=== PATIENT | female | born 1990 | race Caucasian/White ===

== ENCOUNTER → 2020-04-27 | Outpatient (CLI) | payer OTHER ==
--- NOTE | 2020-04-27 09:40 | RADIOLOGY REPORT (SQ) ---
EXAM DESCRIPTION: MRI HEAD COMBO IMAGES COMPLETED DATE/TIME: 04/27/2020 9:01 am REASON FOR STUDY: R20.2 PARESTHESIA OF SKIN R20.2 PARESTHESIA OF SKIN COMPARISON: None. TECHNIQUE: Multiplanar imaging includes noncontrasted T1, T2, FLAIR, diffusion with ADC map and post gadolinium contrast T1 sequences. Images stored on PACS. CONTRAST TYPE AND DOSE: 10 mL Prohance. RENAL FUNCTION: Not indicated. ACR Type II contrast agent associated with few, if any, unconfounded cases of NSF LIMITATIONS: None. FINDINGS: ANATOMY: No anomalies. Normal vascular flow voids. Pituitary fossa normal. CSF SPACES: Normal in size and contour. No hemorrhage. CEREBRUM: Sulci and gyri normal in size and contour. Normal white matter signal on FLAIR imaging. No evidence of hemorrhage, mass, or extraaxial fluid collection. No abnormal enhancement post contrast. POSTERIOR FOSSA: No signal alteration. No hemorrhage. No edema, masses, or mass effect. Internal luz tory canals, cerebellopontine angles, mastoids normal. No enhancing lesions. No abnormal enhancement post contrast. DIFFUSION IMAGING: Negative for acute or subacute infarction. ORBITS: No masses. Globes normal. PARANASAL SINUSES: No fluid levels. Mucosa normal. OTHER: No other significant finding. IMPRESSION: NORMAL MRI OF THE BRAIN WITHOUT AND WITH INTRAVENOUS GADOLINIUM CONTRAST. EVIDENCE OF ACUTE STROKE: NO. TECHNICAL DOCUMENTATION: JOB ID: [id number] 2010 [employer]- All Rights Reserved Reading location - IP/workstation name: [email or web address]
== END ==
LOC: RAD 08:08
PROVIDERS: ATTEND Nurse Practitioner Family
DX: R20.2 Paresthesia of skin (principal)
CPT/HCPCS: 70553; A9576

== ENCOUNTER → 2020-05-06 | Outpatient (CLI) | payer OTHER ==
--- NOTE | 2020-05-06 13:54 | XCELERA REPORT ---
[address] [address] Transthoracic Echocardiogram Report Name: BELL PEDERSON Age: 29 yrs Gender: Female : 1990 Patient Status: Outpatient Patient Location: Study Date: 05/06/2020 08:22 AM Height: 67 in Weight: 127 lb BSA: 1.7 m2 Reason For Study: CP Ordering Physician: MAY ROBERSON Performed By: Monica Porter Interpretation Summary No significant posterior pericardial effusion. Normal aortic root 27 mm. AV valve configuration 3 cusps, normal, with no and no AR.. No mitral annular calcification. No MS, No MVP. Mild 2 MR jets with no left atrial enlargement.(AYE=26.6) No LVH (7 mm)., Biplane LVEF 60-65%, no diastolic dysfunction by TDI.. Segmental regional wall motion abnormality seen as in inferoseptal wall hypokinesis. No LV enlargement (LVESD 36 mm). Tricuspid valve is normal, mild TV regurgitation., trace WA. RA and RV both normal size.. TAPSE is normal, no RVSD. RVSP is 22mm Hg. No ASD. IVC not dilated 21 mm. Summary = Mild MR with no MS, no MVP, no LA enlargement. No LVH , normal LVEF 60-65%(visual), with no Diastolic Dysfunction by TDI. Mild regional wall motion abnormality as in inferoseptal wall hypokinesis. Normal R heart, NO pulm. HTN, RVSP22. Mild MR and TR mild . Dr Yosvany Griffiths. MMode/2D Measurements & Calculations RVDd: 3.1 cm LVIDd: 4.6 cm FS: 32.8 % Ao root diam: 2.5 cm IVSd: 0.66 cm LVIDs: 3.1 cm EDV(Teich): Ao root area: LVPWd: 0.84 cm 95.8 ml ESV(Teich): 5.0 cm2 37.0 ml LA dimension: 3.6 cm EF(Teich): 61.4 % LVLd ap4: 7.9 cm SV(MOD-sp4): EDV(MOD-sp4): 52.0 ml 89.0 ml LVLs ap4: 6.4 cm ESV(MOD-sp4): 37.0 ml EF(MOD-sp4): 58.4 % Doppler Measurements & Calculations MV E max maggy: MV P1/2t max maggy: Ao V2 max: LV V1 max P.3 cm/sec 94.8 cm/sec 117.9 cm/sec 4.3 mmHg MV A max maggy: MV P1/2t: 79.6 msec Ao max PG: LV V1 max: 49.9 cm/sec 5.6 mmHg 104.1 cm/sec MV E/A: 1.9 MVA(P1/2t): 2.8 cm2 MV dec slope: 348.6 cm/sec2 PA V2 max: PI end-d maggy: TR max maggy: MV P1/2t-pr_phl: 92.8 cm/sec 127.0 cm/sec 214.3 cm/sec 79.6 msec PA max PG: TR max P.4 mmHg 18.4 mmHg I WMSI = 1.13 % Normal = 88 Segments Size X - Cannot 1 - Normal 2 - 3 - Akinetic4 - 1-2 small Interpret Hypokinetic Dyskinetic 3-5 moderate 5 - 6-14 large Aneurysmal 15-16 diffuse : MAY ROBERSON Andre
== END ==
LOC: SP 07:53
PROVIDERS: ATTEND Nurse Practitioner Family
DX: R07.9 Chest pain, unspecified (principal)
CPT/HCPCS: 93306

== ENCOUNTER 2020-06-30 07:33 | Day surgery (SDC) | payer OTHER ==
[2020-06-30 09:50] LABS: INTERNATIONAL RATION (INR) 0.92; PROTHROMBIN TIME 12.6 SEC (11.4-15.4)
[2020-06-30 11:44] LABS: APPEARANCE ALL TUBES CLEAR; COLOR ALL TUBES COLORLESS; CSF TUBE NUMBER 3; VOLUME TUBE 1 3.2 CC
[2020-06-30 11:45] LABS: CSF TOTAL VOLUME 15.2 CC; VOLUME TUBE 2 3.5 CC; VOLUME TUBE 4 4.5 CC
[2020-06-30 11:46] LABS: RED BLOOD CELL,CSF 3 /uL (0-10)
[2020-06-30 11:47] LABS: WHITE BLOOD CELL,CSF 1 /uL (0-5)
[2020-06-30 12:04] LABS: GLUCOSE,CSF 50 mg/dL (40-70); PROTEIN,CSF 41 mg/dL (12-60)
--- NOTE | 2020-06-30 12:33 | RADIOLOGY REPORT (SQ) ---
EXAM DESCRIPTION: LUMBAR PUNCTURE IMAGES COMPLETED DATE/TIME: 06/30/2020 10:47 am REASON FOR STUDY: MS COMPARISON: None. FLUOROSCOPY TIME: 0.1 MINUTE OF FLUOROSCOPY USED. 1 Images saved to PACS. TECHNIQUE: Fluoroscopic guided lumbar puncture with opening and closing pressures. LIMITATIONS: None. PROCEDURE: After written consent and assessment were obtained, the patient was brought into the fluo roscopy room and placed prone on the table. The patient's lower back was prepped in a sterile fashion and an entry site was selected under live fluoroscopic guidance. The entry site was anesthetized wit h 1% lidocaine. A 20 gauge needle was advanced through the skin and into the thecal sac at the level of L 3 -L 4 . An opening pressure of 25 units was obtained. After approximately 16 ml of CSF was drai homer, a closing pressure of 18 units was obtained. The needle was removed and a sterile bandage was pl aced of the site. Specimens were sent to the lab for testing. A fluoroscopic spot image was saved to PACS confirming level access. FINDINGS: Clear CSF IMPRESSION: Lumbar puncture under fluoroscopy. No immediate complication. COMMENT: Patient medication list reviewed: Yes- Quality ID# [id number]:Eligible professional attests to doc umenting in the medical record they obtained, updated, or reviewed the patient's current medications. Quality ID 145: Final reports for procedures using fluoroscopy that document radiation exposure indic es, or exposure time and number of fluorographic images (if radiation exposure indices are not availa ble) TECHNICAL DOCUMENTATION: Job ID: [id number] 2010 [employer]- All Rights Reserved Reading location - IP/workstation name: [email or web address] [id number]
[2020-06-30 18:50] VITALS: BP 104/57
== END 2020-06-30 12:55 | disposition home or self-care (01) ==
LOC: RAD 07:33
PROVIDERS: ATTEND Specialist
DX: G35 Multiple sclerosis (principal)
CPT/HCPCS: 36415; 62328; 82784; 82945; 83916; 84157; 85610; 85730; 87070; 87205; 89050